=== PATIENT | male | born 1940 | race Caucasian/White ===

== ENCOUNTER 2018-02-07 09:46 | Inpatient (IN) | payer MEDICARE ==
[~2018-02-07] VITALS: Ht 182.9 cm; Wt 102.4 kg
[2018-02-07 10:13] LABS: BASOPHILS ABSOLUTE AUTO 0.07 K/mm3 (0.00-0.23); BASOPHILS PERCENT AUTO 1 % (0-2); EOSINOPHILS ABSOLUTE AUTO 0.13 K/mm3 (0.00-0.68); EOSINOPHILS PERCENT AUTO 2 % (0-6); Hematocrit 46.3 % (37.0-53.0); Hemoglobin 14.8 g/dL (13.5-17.5); IMMATURE GRAN ABSOLUTE AUTO 0.19 K/mm3 (0.00-0.10); IMMATURE GRAN PERCENT AUTO 2 % (0-1); LYMPHOCYTES ABSOLUTE AUTO 1.18 K/mm3 (0.84-5.20); LYMPHOCYTES PERCENT AUTO 14 % (21-46); MONOCYTES PERCENT AUTO 12 % (4-13); Mean Corpuscular HGB 31.6 pg (26.0-34.0); Mean Corpuscular Volume 99 fL (80-100); Mean Platelet Volume 10.1 fL (9.1-12.4); NEUTROPHILS ABSOLUTE AUTO 6.05 K/mm3 (1.96-9.15); NEUTROPHILS PERCENT AUTO 70 % (41-73); Platelet Count 201 K/mm3 (150-400); RDW Coefficient Variation 12.1 % (11.7-14.2); RDW Standard Deviation 44.6 fL (35.1-46.3); Red Blood Cell Count 4.68 M/mm3 (4.30-5.90); White Blood Cell Count 8.62 K/mm3 (4.00-11.30)
[2018-02-07] MEDS ORDERED: ALBU90OI INH (10:13)
[2018-02-07] MEDS ORDERED: ACET325 PO (10:13)
[2018-02-07] MEDS ORDERED: ASPI81CH PO (10:13)
[2018-02-07] MEDS ORDERED: CLOP75 PO (10:14)
[2018-02-07] MEDS ORDERED: CLON1 PO (10:14)
[2018-02-07] MEDS ORDERED: CHOL10002 (10:14)
[2018-02-07] MEDS ORDERED: GABA100 PO (10:15)
[2018-02-07] MEDS ORDERED: FINA5 PO (10:15)
[2018-02-07] MEDS ORDERED: METO25ER PO (10:15)
[2018-02-07] MEDS ORDERED: ASMANEX220 MC1 IH (10:16)
[2018-02-07] MEDS ORDERED: Hair, Skin & N1 EACH PO (10:16)
[2018-02-07] MEDS ORDERED: STRIVERDI RESPIM4 GM IH (10:16)
[2018-02-07] MEDS ORDERED: TAMS.4ER PO (10:17)
[2018-02-07] MEDS ORDERED: PYRI100 PO (10:17)
[2018-02-07] MEDS ORDERED: TRIA15CR3 (10:18)
[2018-02-07] MEDS ORDERED: TORS10 (10:18)
[2018-02-07 10:29] LABS: Troponin I <0.015 ng/mL (0.000-0.040)
[2018-02-07 10:41] LABS: Alanine Aminotransfer (ALT/SGP 23 U/L (12-78); Albumin, Blood 3.2 g/dL (3.4-5.0); Albumin/Globulin Ratio 0.9 (0.8-1.8); Alk Phos 79 U/L (50-136); Anion Gap 4 mmol/L (6-16); Aspartate Aminotrans (AST/SGOT 19 U/L (12-37); Bilirubin, Total 0.4 mg/dL (0.1-1.0); Blood Urea Nitrogen 17 mg/dL (8-24); Bun/Creatinine Ratio 23.6 (12.0-20.0); CO2, Blood 42 mmol/L (21-32); Calcium, Blood 8.5 mg/dL (8.5-10.1); Chloride, Blood 92 mmol/L (98-108); Creatinine, Blood 0.72 mg/dL (0.60-1.20); Globulin, Blood 3.7 g/dL (2.2-4.0); Glomerular Filtration Rate >60 (60-); Glucose, Blood 137 mg/dL (70-99); Potassium, Blood 4.3 mmol/L (3.5-5.5); Sodium, Blood 138 mmol/L (136-145); Total Protein, Blood 6.9 g/dL (6.4-8.2)
[2018-02-08 05:20] LABS: Base Excess Venous 16.7 mmol/L; Bicarbonate Venous 36.3 mmol/L (24.0-30.0); PCO2 Venous 71.2 mmHg (38-42); PO2 Venous 43.9 mmHg (38-42); pH Blood Venous 7.38 (7.34-7.37)
[2018-02-08 05:27] LABS: BASOPHILS ABSOLUTE AUTO 0.03 K/mm3 (0.00-0.23); BASOPHILS PERCENT AUTO 0 % (0-2); EOSINOPHILS PERCENT AUTO 0 % (0-6); Hematocrit 45.7 % (37.0-53.0); Hemoglobin 14.4 g/dL (13.5-17.5); IMMATURE GRAN ABSOLUTE AUTO 0.18 K/mm3 (0.00-0.10); IMMATURE GRAN PERCENT AUTO 2 % (0-1); LYMPHOCYTES ABSOLUTE AUTO 0.61 K/mm3 (0.84-5.20); LYMPHOCYTES PERCENT AUTO 5 % (21-46); MONOCYTES ABSOLUTE AUTO 0.52 K/mm3 (0.16-1.47); MONOCYTES PERCENT AUTO 4 % (4-13); Mean Corpuscular HGB 31.6 pg (26.0-34.0); Mean Corpuscular HGB Conc 31.5 g/dL (31.5-36.5); Mean Corpuscular Volume 100 fL (80-100); Mean Platelet Volume 10.3 fL (9.1-12.4); NEUTROPHILS ABSOLUTE AUTO 10.41 K/mm3 (1.96-9.15); NEUTROPHILS PERCENT AUTO 89 % (41-73); Platelet Count 203 K/mm3 (150-400); RDW Coefficient Variation 12.2 % (11.7-14.2); RDW Standard Deviation 45.8 fL (35.1-46.3); Red Blood Cell Count 4.55 M/mm3 (4.30-5.90); White Blood Cell Count 11.75 K/mm3 (4.00-11.30)
[2018-02-08 06:04] LABS: Anion Gap 4 mmol/L (6-16); Blood Urea Nitrogen 26 mg/dL (8-24); Bun/Creatinine Ratio 36.4 (12.0-20.0); CO2, Blood 39 mmol/L (21-32); Calcium, Blood 8.7 mg/dL (8.5-10.1); Chloride, Blood 92 mmol/L (98-108); Creatinine, Blood 0.72 mg/dL (0.60-1.20); Glomerular Filtration Rate >60 (60-); Glucose, Blood 183 mg/dL (70-99); Potassium, Blood 4.6 mmol/L (3.5-5.5); Sodium, Blood 135 mmol/L (136-145)
[2018-02-09 05:24] LABS: Base Excess Venous 16.9 mmol/L; Bicarbonate Venous 36.4 mmol/L (24.0-30.0); PCO2 Venous 74.1 mmHg (38-42); pH Blood Venous 7.37 (7.34-7.37)
[2018-02-09] MEDS ORDERED: DOCU100 PO (09:39)
[2018-02-09] MEDS ORDERED: ALBU3IS (09:40)
[2018-02-09] MEDS ORDERED: KETO15TC TOP (09:40)
[2018-02-09] MEDS ORDERED: NICO21TP TOP (09:40)
[2018-02-09] MEDS ORDERED: PRED20 PO (09:41)
== END 2018-02-09 09:59 | disposition home or self-care (01) | DRG 189 ==
LOC: ER 09:46 → MEDS 09:47 → ENPENDDIS 02-09 09:30 → MEDS 02-09 09:59
PROVIDERS: Emergency Medicine; Internal Medicine
DX: J96.21 Acute and chronic respiratory failure with hypoxia (principal); B38.2 Pulmonary coccidioidomycosis, unspecified; E87.1 Hypo-osmolality and hyponatremia; J44.1 Chronic obstructive pulmonary disease with (acute) exacerbation; J96.22 Acute and chronic respiratory failure with hypercapnia; Z99.81 Dependence on supplemental oxygen; I25.10 Atherosclerotic heart disease of native coronary artery without angina pectoris; Z95.5 Presence of coronary angioplasty implant and graft; G62.9 Polyneuropathy, unspecified; F17.210 Nicotine dependence, cigarettes, uncomplicated; L30.9 Dermatitis, unspecified; R73.9 Hyperglycemia, unspecified; Z99.3 Dependence on wheelchair; I25.2 Old myocardial infarction; Z87.01 Personal history of pneumonia (recurrent); I11.0 Hypertensive heart disease with heart failure; I50.9 Heart failure, unspecified
CPT/HCPCS: 36415; 71046; 80048; 80053; 82803; 83605; 83880; 84145; 84484; 85025; 87040; 93005; 93010; 94640; 94644; 94760; 94762; 96361; 96374; 96375; 99285-25; G0378; J0456; J1650; J1940; J2930; J7050